=== PATIENT | female | born 1980 | race Caucasian/White ===

== ENCOUNTER 2021-04-10 19:50 | Emergency (ER) | payer OTHER ==
[~2021-04-10] VITALS: Ht 165.1 cm; Wt 99.8 kg
[2021-04-10 20:20] VITALS: BP 110/62
[2021-04-11 00:30] VITALS: BP 117/78
--- NOTE | 2021-04-11 00:30 | NUR ---
Patient discharged with v/s stable. Written and verbal after care instructions given and explained. Patient verbalized understanding. Wheel Chair Assisted with to car. All questions addressed prior to discharge. Advised to follow up with PMD.
--- NOTE | 2021-04-11 00:50 | NUR ---
Note maisha in EDM - 04/11/21 [facility] 0056 [facility] with v[facility]s stable. Written and verbal after care instructions given and explained to parent/guardian. Parent/Guardian verbalized understanding. Ambulatoryby parent. All questions addressed prior to discharge. Advised to follow up with PMD.
== END 2021-04-11 00:30 | disposition home or self-care (01) ==
LOC: MED 19:50
DX: S22.32XA Fracture of one rib, left side, initial encounter for closed fracture (principal); M25.472 Effusion, left ankle; Z85.830 Personal history of malignant neoplasm of bone; X58.XXXA Exposure to other specified factors, initial encounter; Y93.89 Activity, other specified; Y92.89 Other specified places as the place of occurrence of the external cause; Y99.8 Other external cause status
CPT/HCPCS: 71101; 73610; 99284

== ENCOUNTER 2021-10-01 11:47 | Emergency (ER) | payer SELFPAY ==
[~2021-10-01] VITALS: Ht 165.1 cm; Wt 112.5 kg
[2021-10-01 11:53] VITALS: BP 105/62
--- NOTE | 2021-10-01 12:10 | NUR ---
PT AMBULATED TO BED 8 WITH STEADY GAIT
--- NOTE | 2021-10-01 12:13 | NUR ---
RADHA MCDONOUGH AT BEDSIDE
--- NOTE | 2021-10-01 12:17 | NUR ---
41 Y/O FEMALE BIB SELF, C/O OF URGENCY AND FREQUENCY OF URINATION. DENIES PAIN, VAGINAL DISCHARGE, NO BURNING UPON URINATION. 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
--- NOTE | 2021-10-01 12:20 | NUR ---
PT AMBULATED TO RESTROOM FOR UA COLLECTION.
--- NOTE | 2021-10-01 13:30 | NUR ---
URINE WALKED TO LAB
[2021-10-01 13:41] LABS: APPEARANCE,URINE SL CLOUDY (CLEAR); BILIRUBIN,URINE NEGATIVE (NEGATIVE); BLOOD, URINE TRACE-I (NEGATIVE); COLOR,URINE YELLOW (YELLOW); LEUKOCYTE ESTERASE ,URINE 1+ (NEGATIVE); NITRITE, URINE NEGATIVE (NEGATIVE); UGLUCOSE NEGATIVE (NEGATIVE)
[2021-10-01 14:16] LABS: RBC,URINE 0-5 /HPF (0-5)
[2021-10-01 14:17] LABS: CALCIUM OXALATE CRYSTALS,UR None Seen /HPF (None Seen); OTHER CRYSTALS,URINE None Seen /HPF (None Seen); TRICHOMONAS,URINE None Seen /HPF (None Seen); TRIPLE PHOSPHATE CRYSTAL,UR None Seen /HPF (None Seen); URIC ACID CRYSTALS,URINE None Seen /HPF (None Seen); YEAST,URINE Few /HPF (None Seen)
[2021-10-01 14:18] LABS: COARSE GRANULAR CASTS,URINE None Seen /LPF (None Seen); FINE GRANULAR CASTS,URINE None Seen /LPF (None Seen); HYALINE CASTS, URINE None Seen /LPF (None Seen); OTHER CASTS, URINE None Seen /LPF (None Seen); RED BLOOD CELL CASTS,URINE None Seen /LPF (None Seen); URINE AMORPHOUS URATE None Seen /HPF (None Seen); WAXY CASTS,URINE None Seen /LPF (None Seen)
[2021-10-01] MEDS ORDERED: CEPH-588 PO (14:18)
[2021-10-01 14:19] VITALS: BP 108/69
[2021-10-01] MEDS ORDERED: FLUC150T PO (14:23)
--- NOTE | 2021-10-01 14:39 | NUR ---
Patient discharged with v/s stable. Written and verbal after care instructions ABOUT UTI given and explained. Patient alert, oriented and verbalized understanding of instructions. Ambulatory with steady gait. All questions addressed prior to discharge. ID band removed. Patient advised to follow up with PMD. Rx of FLUCONAZOLE, CEPHALEXIN given. Patient educated on indication of medication including possible reaction and side effects. Opportunity to ask questions provided and answered.
== END 2021-10-01 14:39 | disposition home or self-care (01) ==
LOC: MED 11:47
DX: N39.0 Urinary tract infection, site not specified (principal); B37.3 Candidiasis of vulva and vagina; Z79.2 Long term (current) use of antibiotics; Z79.899 Other long term (current) drug therapy
CPT/HCPCS: 81001; 81025; 87086; 99283

== ENCOUNTER 2024-02-11 00:50 | Emergency (ER) | payer SELFPAY ==
[~2024-02-11] VITALS: Ht 165.1 cm; Wt 99.3 kg
[~2024-02-11 00:50] MED LIST: CEPH-588 PO; FLUC150T PO
[2024-02-11 01:18] VITALS: BP_SYST 134; BP_SYST 95; BP_DIAS 68; BP_DIAS 91; PULSE 102; RESP 16; TEMP 98.5; O2SAT 96
[2024-02-11] MEDS ORDERED: ONDA-188 SL (01:49)
[2024-02-11] MEDS ORDERED: SUCR1TAB56 PO (01:49)
[2024-02-11] MEDS ORDERED: LOPE1TAB14 PO (01:49)
[2024-02-11] MEDS ORDERED: FAMO-90 PO (01:49)
[2024-02-11 01:55] VITALS: O2SAT 96
[2024-02-11] MEDS: ALUMINUM HYD/MAG/SIMETHICONE 30 ML UDC PO ONE (02:04)
[2024-02-11 02:11] VITALS: BP 95/68; PULSE 99; RESP 16; TEMP 98.5; O2SAT 96
== END 2024-02-11 02:12 | disposition home or self-care (01) ==
LOC: MED 00:50
DX: A08.4 Viral intestinal infection, unspecified (principal); K21.9 Gastro-esophageal reflux disease without esophagitis; Z79.899 Other long term (current) drug therapy
CPT/HCPCS: 81025; 99283